=== PATIENT | female | born 1955 | race Caucasian/White ===

== ENCOUNTER 2016-09-04 07:14 | Day surgery (SDC) | payer OTHER ==
[~2016-09-04] VITALS: Ht 149.9 cm; Wt 77.2 kg
[~2016-09-04 07:14] MED LIST: ATOR40TA68 PO; OMEP40CA6 PO
[2016-09-04] MEDS ORDERED: LEVO25TA53 PO (08:38)
[2016-09-04] MEDS ORDERED: LEVO50TA83 PO (08:38)
[2016-09-04 08:42] VITALS: Ht 149.9 cm; Wt 77.2 kg
[2016-09-04 08:59] VITALS: BP 153/69; RESP 13
[2016-09-04] MEDS ORDERED: ATROPINE 1 MG/10 ML SYRINGE ONE ×3 (09:58→11:11)
[2016-09-04] MEDS ORDERED: FENTAnyl 50 MCG/ML VIAL ONE (09:58)
[2016-09-04] MEDS ORDERED: MIDAZOLAM 1 MG/ML 2 ML INJ ONE ×2 (09:59)
--- NOTE | 2016-09-04 10:05 | GILP ---
DATE OF PROCEDURE: 09/04/2016 NAME OF PROCEDURES: 1. Esophagogastroduodenoscopy and biopsy. 2. Colonoscopy. SURGEON: Cheryl Blanc MD PREOPERATIVE DIAGNOSES: 1. Abdominal pain. 2. Chronic heartburn. 3. Change in the bowel habit. POSTOPERATIVE DIAGNOSES: 1. Hiatal hernia. 2. Gastroesophageal reflux disease. 3. Gastritis with erosions. 4. Gastric mucosal biopsies were taken for Helicobacter pylori test. 5. Colonoscopy all the way to the cecum. 6. Internal hemorrhoids. 7. No colon neoplasm was identified. INDICATION FOR THE PROCEDURE: Ms. Thelma Cunningham is a 60-year-old female patient who had upper abdom inal pain and chronic heartburn, not responding to therapy. The patient also noticed a change in th e bowel habit. The patient had a screening colonoscopy 2 years ago and the exam was very suboptimal because of the poor prep, so the patient was scheduled for endoscopy and colonoscopy for further ev aluation. The procedures and possible complications are well explained to the patient. The patient understood and consented to the procedure. DESCRIPTION OF PROCEDURE: Under the influence of fentanyl and Versed, the gastroscope was carefully introduced into the esophagus and under direct vision, it was advanced to the stomach and through t he pylorus into the duodenal bulb and descending duodenum. FINDINGS: ESOPHAGUS: The patient had hiatal hernia and gastroesophageal reflux disease. STOMACH: She had gastritis with erosions. Gastric mucosal biopsies were taken for H. pylori test. DUODENUM: Normal. The colonoscope was carefully introduced in the rectum and under direct vision, it was advanced all the way to the cecum. FINDINGS: The patient had internal hemorrhoids. No colon neoplasm was identified. She tolerated the procedures very well and there was no complication from the procedures. At the en d of the procedures, she was awake with stable vital signs and she was discharged home to the [facility] f her family. IMPRESSION: 1. Hiatal hernia. 2. Gastroesophageal reflux disease. 3. Gastritis with erosions. 4. Gastric mucosal biopsies were taken for Helicobacter pylori test. 5. Colonoscopy all the way to the cecum. 6. Internal hemorrhoids. 7. No colon neoplasm was identified. PLAN: 1. Omeprazole 40 mg p.o. q.a.m. 2. Zantac 300 mg p.o. at bedtime. 3. Await H. pylori test report. 4. Bentyl 10 mg p.o. t.i.d. p.r.n. for pain. Dictated By: CHERYL ANGELA/YANETH Conf#: [id number] DID#: [id number] CC: CHERYL BLANC MD;*EndCC*
[2016-09-04 10:20] VITALS: BP 118/62; PULSE 61; RESP 16
== END 2016-09-04 10:21 | disposition home or self-care (01) ==
LOC: GIL 07:14
PROVIDERS: ATTEND Internal Medicine Gastroenterology
DX: R19.4 Change in bowel habit (principal); K44.9 Diaphragmatic hernia without obstruction or gangrene; K29.60 Other gastritis without bleeding; K64.8 Other hemorrhoids; I10 Essential (primary) hypertension
CPT/HCPCS: 43239; 45378; 87081; J0461; J2250; J3010; Z7610